=== PATIENT | male | born 1940 | race Caucasian/White ===

== ENCOUNTER 2021-11-05 12:58 | Observation (INO) | payer MEDICARE ==
[~2021-11-05] VITALS: Ht 182.9 cm; Wt 105.0 kg
[2021-11-05 13:15] LABS: Calcium, Ionized (POC) 1.22 mmol/L (1.10-1.46); Chloride (POC) 107 mmol/L (98-108); Creatinine (POC) 0.9 mg/dL (0.8-1.3); Glucose (ISTAT POC) 143 mg/dL (70-99); Hemoglobin (POC) 10.9 g/dL (13.5-17.5); Potassium (POC) 3.9 mmol/L (3.5-5.5); Sodium (POC) 143 mmol/L (135-148); Total CO2 (POC) 24 mmol/L (21-32)
[2021-11-05] MEDS ORDERED: Lipitor20 MG PO (13:16)
[2021-11-05] MEDS ORDERED: Vitamin D1000 UNI1 PO (13:16)
[2021-11-05] MEDS ORDERED: Acerola C500 MG PO (13:16)
[2021-11-05] MEDS ORDERED: Ventolin5 MG/1 ML INH (13:16)
[2021-11-05] MEDS ORDERED: DONEPEZIL HCL10 MG PO (13:17)
[2021-11-05] MEDS ORDERED: FLOVENT HFA12 GM INH (13:17)
[2021-11-05] MEDS ORDERED: DIGOX125 MC1 PO (13:17)
[2021-11-05] MEDS ORDERED: CARV3.125 PO (13:17)
[2021-11-05] MEDS ORDERED: Norco 10-325 T1 EACH PO (13:18)
[2021-11-05] MEDS ORDERED: GABA300 PO (13:18)
[2021-11-05] MEDS ORDERED: LISI5 PO (13:19)
[2021-11-05] MEDS ORDERED: MECL25 PO (13:19)
[2021-11-05] MEDS ORDERED: MEMA10 PO (13:19)
[2021-11-05] MEDS ORDERED: Isosorbide Mono30 MG PO (13:19)
[2021-11-05] MEDS ORDERED: OMEP20ER PO (13:20)
[2021-11-05] MEDS ORDERED: XARELTO20 MG PO (13:20)
[2021-11-05] MEDS ORDERED: NITR.4SL SL (13:20)
[2021-11-05 13:26] LABS: BASOPHILS ABSOLUTE AUTO 0.05 K/mm3 (0.00-0.23); BASOPHILS PERCENT AUTO 1 % (0-2); EOSINOPHILS ABSOLUTE AUTO 0.27 K/mm3 (0.00-0.68); EOSINOPHILS PERCENT AUTO 3 % (0-6); Hematocrit 31.5 % (37.0-53.0); Hemoglobin 9.5 g/dL (13.5-17.5); IMMATURE GRAN ABSOLUTE AUTO 0.02 K/mm3 (0.00-0.10); IMMATURE GRAN PERCENT AUTO 0 % (0-1); LYMPHOCYTES ABSOLUTE AUTO 1.52 K/mm3 (0.84-5.20); LYMPHOCYTES PERCENT AUTO 18 % (21-46); MONOCYTES ABSOLUTE AUTO 0.81 K/mm3 (0.16-1.47); MONOCYTES PERCENT AUTO 9 % (4-13); Mean Corpuscular HGB 24.2 pg (26.0-34.0); Mean Corpuscular HGB Conc 30.2 g/dL (31.5-36.5); Mean Corpuscular Volume 80 fL (80-100); Mean Platelet Volume 10.7 fL (9.1-12.4); NEUTROPHILS ABSOLUTE AUTO 5.96 K/mm3 (1.96-9.15); NEUTROPHILS PERCENT AUTO 69 % (41-73); Platelet Count 245 K/mm3 (150-400); RDW Coefficient Variation 15.9 % (11.7-14.2); RDW Standard Deviation 46.6 fL (35.1-46.3); Red Blood Cell Count 3.93 M/mm3 (4.30-5.90); White Blood Cell Count 8.63 K/mm3 (4.00-11.30)
[2021-11-05 13:45] LABS: Albumin/Globulin Ratio 0.8 (0.8-1.8); Bilirubin, Total 0.6 mg/dL (0.1-1.0); Bun/Creatinine Ratio 18.8 (12.0-20.0); Calcium, Blood 8.7 mg/dL (8.5-10.1); Creatinine, Blood 0.85 mg/dL (0.60-1.20); Globulin, Blood 3.7 g/dL (2.2-4.0); Potassium, Blood 3.9 mmol/L (3.5-5.5); Total Protein, Blood 6.7 g/dL (6.4-8.2)
--- NOTE | 2021-11-05 19:06 | NUR ---
SHIFT SUMMARY PT ARRIVED TO ROOM 341 BY W/C AND ABLE TO TRANSFER SELF TO BED AT 1715. DAUGHTER CAME TO SEE HIM FOR SHORT TIME AT SUPPER AND ASSISTED WITH COMPLETING ADMISSION. PT FORGETFUL AND ASKS THE SAME QUESTIONS REPEATEDLY. BED ALARM ON.
--- NOTE | 2021-11-06 04:45 | NUR ---
SHIFT SUMMARY: PATIENT ORIENTED TO SELF ONLY. FORGETFUL WITH POOR CARRYOVER. DENIES CHEST PAIN/PRESSURE. TELE = PACED. PRN NORCO GIVEN FOR COMPLAINT OF BACK PAIN. BED ALARM ENGAGED FOR IMPULSIVITY RELATED TO URINARY URGENCY. PATIENT DOES CALL APPROPIATLEY AT TIMES.
[2021-11-06 08:50] LABS: CHOL/HDL RATIO 2.5; Cholesterol 86 mg/dL (50-200); HDL Cholesterol 34 mg/dL (>39); LDL/HDL RATIO 0.8; Low Density Lipoprotein Chol 29 mg/dL (0-110); Triglycerides 116 mg/dL (30-160); Very Low Density Lipoprot Chol 23 mg/dL (6-32)
--- NOTE | 2021-11-06 10:11 | NUR ---
Spiritual Care Visit - Pt. Request Pt. is awake in bed and welcomes my visit. Pt. is pleasant and has no real spiritual distress. Pt, is only unsettled by the uncertain nature of his diagnosis. With a calming presence, listen theraputically. Pt. is a man of ever. Develop rapport and pray with Pt. Pt. verbalizes expectations of discharge and gratitude for the spiritual care visit.
--- NOTE | 2021-11-06 14:50 | NUR ---
DISCHARGE INSTRUCTIONS COMPLETED AND DISCUSSED WITH PTS DAUGHTER, JUSTINA. PT REPEATIN QUESTIONS FREQUENTLY AND NEEDING REORIENTATION. EASILY REDIRECTABLE. TOO CURB VIA W/C.
== END 2021-11-06 14:46 | disposition home or self-care (01) ==
LOC: ER 12:58 → MEDS 12:59
PROVIDERS: Emergency Medicine; Family Medicine; ADMIT Internal Medicine
DX: R07.89 Other chest pain (principal); F03.90 Unspecified dementia, unspecified severity, without behavioral disturbance, psychotic disturbance, mood disturbance, and anxiety; I48.20 Chronic atrial fibrillation, unspecified; E78.5 Hyperlipidemia, unspecified; I11.0 Hypertensive heart disease with heart failure; I50.9 Heart failure, unspecified; K21.9 Gastro-esophageal reflux disease without esophagitis; I25.10 Atherosclerotic heart disease of native coronary artery without angina pectoris; Z95.0 Presence of cardiac pacemaker; Z88.2 Allergy status to sulfonamides; Z79.01 Long term (current) use of anticoagulants
CPT/HCPCS: 36415; 71046; 80047; 80053; 80061; 83036; 83880; 84443; 84484; 85014; 85025; 85651; 86140; 93005; 93010; 93306; 94640; 94664; 94760; 99285-25; A9270; G0378; J7030

== ENCOUNTER 2022-02-21 02:05 | Day surgery (SDC) | payer MEDICARE ==
[~2022-02-21 02:05] MED LIST: Acerola C500 MG PO; CARV3.125 PO; DIGOX125 MC1 PO; DONEPEZIL HCL10 MG PO; FLOVENT HFA12 GM INH; GABA300 PO; Isosorbide Mono30 MG PO; LISI5 PO; Lipitor20 MG PO; MECL25 PO; MEMA10 PO; NITR.4SL SL; Norco 10-325 T1 EACH PO; OMEP20ER PO; Ventolin5 MG/1 ML INH; Vitamin D1000 UNI1 PO; XARELTO20 MG PO
== END 2022-02-22 00:23 | disposition home or self-care (01) ==
LOC: WOUND 02:05
DX: L89.893 Pressure ulcer of other site, stage 3 (principal); I10 Essential (primary) hypertension; E78.5 Hyperlipidemia, unspecified; I73.9 Peripheral vascular disease, unspecified; M79.671 Pain in right foot; F03.90 Unspecified dementia, unspecified severity, without behavioral disturbance, psychotic disturbance, mood disturbance, and anxiety; J44.9 Chronic obstructive pulmonary disease, unspecified; Z88.2 Allergy status to sulfonamides
CPT/HCPCS: A9270; G0463

== ENCOUNTER 2022-03-07 02:37 | Day surgery (SDC) | payer MEDICARE | END 2022-03-07 23:32 | disposition home or self-care (01) | LOC: WOUND 02:37 | DX: L89.893 Pressure ulcer of other site, stage 3 (principal); I10 Essential (primary) hypertension; F03.90 Unspecified dementia, unspecified severity, without behavioral disturbance, psychotic disturbance, mood disturbance, and anxiety; I73.9 Peripheral vascular disease, unspecified | CPT/HCPCS: A9270; G0463 ==

== ENCOUNTER 2022-03-14 00:57 | Day surgery (SDC) | payer MEDICARE | END 2022-03-14 23:23 | disposition home or self-care (01) | LOC: WOUND 00:57 | DX: L89.893 Pressure ulcer of other site, stage 3 (principal); I10 Essential (primary) hypertension; E78.5 Hyperlipidemia, unspecified; I73.9 Peripheral vascular disease, unspecified | CPT/HCPCS: A9270 ==

== ENCOUNTER 2022-03-27 03:54 | Day surgery (SDC) | payer MEDICARE | END 2022-03-27 22:53 | disposition home or self-care (01) | LOC: WOUND 03:54 | DX: L89.893 Pressure ulcer of other site, stage 3 (principal); I10 Essential (primary) hypertension; E78.5 Hyperlipidemia, unspecified; I70.219 Atherosclerosis of native arteries of extremities with intermittent claudication, unspecified extremity | CPT/HCPCS: G0463 ==

== ENCOUNTER 2022-04-11 00:34 | Day surgery (SDC) | payer MEDICARE | END 2022-04-11 22:48 | disposition home or self-care (01) | LOC: WOUND 00:34 | DX: L89.893 Pressure ulcer of other site, stage 3 (principal); I70.219 Atherosclerosis of native arteries of extremities with intermittent claudication, unspecified extremity; I10 Essential (primary) hypertension; E78.5 Hyperlipidemia, unspecified; F03.90 Unspecified dementia, unspecified severity, without behavioral disturbance, psychotic disturbance, mood disturbance, and anxiety | CPT/HCPCS: A9270 ==

== ENCOUNTER 2022-04-25 02:08 | Day surgery (SDC) | payer MEDICARE | END 2022-04-25 22:52 | disposition home or self-care (01) | LOC: WOUND 02:08 | DX: L89.893 Pressure ulcer of other site, stage 3 (principal); I10 Essential (primary) hypertension; F03.90 Unspecified dementia, unspecified severity, without behavioral disturbance, psychotic disturbance, mood disturbance, and anxiety; E78.5 Hyperlipidemia, unspecified; I70.219 Atherosclerosis of native arteries of extremities with intermittent claudication, unspecified extremity | CPT/HCPCS: A9270; G0463 ==

== ENCOUNTER 2022-05-02 00:36 | Day surgery (SDC) | payer MEDICARE | END 2022-05-02 23:06 | disposition home or self-care (01) | LOC: WOUND 00:36 | DX: L89.893 Pressure ulcer of other site, stage 3 (principal); I10 Essential (primary) hypertension; E78.5 Hyperlipidemia, unspecified; I70.219 Atherosclerosis of native arteries of extremities with intermittent claudication, unspecified extremity; F03.90 Unspecified dementia, unspecified severity, without behavioral disturbance, psychotic disturbance, mood disturbance, and anxiety | CPT/HCPCS: A9270 ==

== ENCOUNTER 2022-05-16 01:40 | Day surgery (SDC) | payer MEDICARE | END 2022-05-17 23:31 | disposition home or self-care (01) | LOC: WOUND 01:40 | DX: L89.893 Pressure ulcer of other site, stage 3 (principal); F03.90 Unspecified dementia, unspecified severity, without behavioral disturbance, psychotic disturbance, mood disturbance, and anxiety; I10 Essential (primary) hypertension; E78.5 Hyperlipidemia, unspecified; I70.219 Atherosclerosis of native arteries of extremities with intermittent claudication, unspecified extremity | CPT/HCPCS: A9270; G0463 ==

== ENCOUNTER 2022-06-20 01:55 | Day surgery (SDC) | payer MEDICARE | END 2022-06-20 22:44 | disposition home or self-care (01) | LOC: WOUND 01:55 | DX: L89.893 Pressure ulcer of other site, stage 3 (principal); I70.219 Atherosclerosis of native arteries of extremities with intermittent claudication, unspecified extremity; I10 Essential (primary) hypertension; E78.5 Hyperlipidemia, unspecified | CPT/HCPCS: G0463 ==

== ENCOUNTER 2022-07-04 01:11 | Day surgery (SDC) | payer MEDICARE | END 2022-07-05 22:42 | disposition home or self-care (01) | LOC: WOUND 01:11 | DX: Z09 Encounter for follow-up examination after completed treatment for conditions other than malignant neoplasm (principal); Z87.2 Personal history of diseases of the skin and subcutaneous tissue; I70.219 Atherosclerosis of native arteries of extremities with intermittent claudication, unspecified extremity; I10 Essential (primary) hypertension; E78.5 Hyperlipidemia, unspecified | CPT/HCPCS: G0463 ==

== ENCOUNTER 2022-09-02 10:14 | Inpatient (IN) | payer MEDICARE ==
[~2022-09-02] VITALS: Ht 182.9 cm; Wt 98.5 kg
[2022-09-02 10:49] LABS: BASOPHILS ABSOLUTE AUTO 0.05 K/mm3 (0.00-0.23); BASOPHILS PERCENT AUTO 1 % (0-2); EOSINOPHILS ABSOLUTE AUTO 0.25 K/mm3 (0.00-0.68); EOSINOPHILS PERCENT AUTO 4 % (0-6); Hematocrit 40.6 % (37.0-53.0); Hemoglobin 13.2 g/dL (13.5-17.5); IMMATURE GRAN ABSOLUTE AUTO 0.02 K/mm3 (0.00-0.10); IMMATURE GRAN PERCENT AUTO 0 % (0-1); LYMPHOCYTES ABSOLUTE AUTO 1.52 K/mm3 (0.84-5.20); LYMPHOCYTES PERCENT AUTO 25 % (21-46); MONOCYTES ABSOLUTE AUTO 0.48 K/mm3 (0.16-1.47); MONOCYTES PERCENT AUTO 8 % (4-13); Mean Corpuscular HGB 28.9 pg (26.0-34.0); Mean Corpuscular HGB Conc 32.5 g/dL (31.5-36.5); Mean Corpuscular Volume 89 fL (80-100); Mean Platelet Volume 10.3 fL (9.1-12.4); NEUTROPHILS ABSOLUTE AUTO 3.71 K/mm3 (1.96-9.15); NEUTROPHILS PERCENT AUTO 62 % (41-73); Platelet Count 155 K/mm3 (150-400); RDW Coefficient Variation 17.9 % (11.7-14.2); RDW Standard Deviation 58.1 fL (35.1-46.3); Red Blood Cell Count 4.57 M/mm3 (4.30-5.90); White Blood Cell Count 6.03 K/mm3 (4.00-11.30)
[2022-09-02] MEDS ORDERED: HYDROCODONE-AC1 EA19 PO (10:56)
[2022-09-02] MEDS ORDERED: ESCI10 PO (10:57)
[2022-09-02 11:18] LABS: Alanine Aminotransfer (ALT/SGP 22 U/L (12-78); Albumin, Blood 3.1 g/dL (3.4-5.0); Albumin/Globulin Ratio 0.8 (0.8-1.8); Alk Phos 74 U/L (50-136); Anion Gap 2 mmol/L (6-16); Aspartate Aminotrans (AST/SGOT 28 U/L (12-37); Bilirubin, Total 0.7 mg/dL (0.1-1.0); Blood Urea Nitrogen 19 mg/dL (8-24); CO2, Blood 26 mmol/L (21-32); Calcium, Blood 8.7 mg/dL (8.5-10.1); Chloride, Blood 109 mmol/L (98-108); Creatinine, Blood 0.95 mg/dL (0.60-1.20); Digoxin (Lanoxin) 0.66 ug/mL (0.80-2.00); Globulin, Blood 3.7 g/dL (2.2-4.0); Glomerular Filtration Rate 79 (60-); Glucose, Blood 141 mg/dL (70-99); Potassium, Blood 4.4 mmol/L (3.5-5.5); Sodium, Blood 137 mmol/L (136-145); Total Protein, Blood 6.8 g/dL (6.4-8.2)
[2022-09-02 13:59] VITALS: BP 147/86
--- NOTE | 2022-09-02 14:00 | NUR ---
ARRIVAL PATIENT ARRIVED TO UNIT VIA W/C, SBA TO BED. PATIENT DENIES CP/PRESSURE/SOB. FULL ASSESSMENT DONE AND DOCUMENTED AT THIS TIME. TELE PLACED, PACED @ 72 PER NAZANIN IN TELE. VSS ON RA. ORIENTED TO ROOM & CALL LIGHT, IN REACH.
--- NOTE | 2022-09-02 18:50 | NUR ---
SHIFT SUMMARY NO ACUTE CHANGES SINCE ARRIVAL TO UNIT. PATIENT UP TO BATHROOM W/ 1 ASSIST W/ FWW. EATING, DRINKING, & VOIDING W/O DIFFICULTY. PATIENT WEARS BRIEFS AT BASELINE FOR OCCASSIONAL INCONTINENCE. PATIENT USES CALL LIGHT APPROPRIATELY AT TIMES, INAPPROPRIATELY AT OTHER TIMES. SOME CONFUSION NOTED, ASKS SAME QUESTIONS OFTEN, EASLIY REORIENTED. BED ALARM IN PLACE. WILL REPORT TO ONCOMING RN.
[2022-09-02 19:17] VITALS: BP 134/83
--- NOTE | 2022-09-02 23:50 | NUR ---
PT TRANSFERED FROM ROOM 340. PT IS AXO X1-2 AND REQUIRES FREQUENT REORIENTATION. THE PT IS A 1 ASSIST WITH A FWW. THE PT DENIES ANY SOB, PAIN, CHEST PAIN/PRESSURE AT THIS TIME. TELE IS IN PLACE, V-PACED IN THE 70'S. BANDAGES ARE INTACT ON THE PTS L FOREARM AND LLQ FROM SKIN GRAFT R/T TO MELANOMA.
[2022-09-03] VITALS (9 sets, daily range): BP systolic 81–154; BP diastolic 56–87
[2022-09-03 01:44] LABS: BASOPHILS ABSOLUTE AUTO 0.04 K/mm3 (0.00-0.23); BASOPHILS PERCENT AUTO 1 % (0-2); EOSINOPHILS ABSOLUTE AUTO 0.32 K/mm3 (0.00-0.68); EOSINOPHILS PERCENT AUTO 4 % (0-6); Hematocrit 42.1 % (37.0-53.0); Hemoglobin 13.8 g/dL (13.5-17.5); IMMATURE GRAN ABSOLUTE AUTO 0.02 K/mm3 (0.00-0.10); IMMATURE GRAN PERCENT AUTO 0 % (0-1); LYMPHOCYTES PERCENT AUTO 25 % (21-46); MONOCYTES ABSOLUTE AUTO 0.69 K/mm3 (0.16-1.47); MONOCYTES PERCENT AUTO 9 % (4-13); Mean Corpuscular HGB 28.9 pg (26.0-34.0); Mean Corpuscular HGB Conc 32.8 g/dL (31.5-36.5); Mean Corpuscular Volume 88 fL (80-100); Mean Platelet Volume 10.3 fL (9.1-12.4); NEUTROPHILS ABSOLUTE AUTO 4.97 K/mm3 (1.96-9.15); NEUTROPHILS PERCENT AUTO 62 % (41-73); Platelet Count 170 K/mm3 (150-400); RDW Coefficient Variation 17.6 % (11.7-14.2); RDW Standard Deviation 57.2 fL (35.1-46.3); Red Blood Cell Count 4.78 M/mm3 (4.30-5.90); White Blood Cell Count 8.04 K/mm3 (4.00-11.30)
[2022-09-03 02:47] LABS: Bun/Creatinine Ratio 22.8 (12.0-20.0); Calcium, Blood 9.2 mg/dL (8.5-10.1); Creatinine, Blood 0.92 mg/dL (0.60-1.20); Potassium, Blood 4.1 mmol/L (3.5-5.5)
--- NOTE | 2022-09-03 05:12 | NUR ---
SHIFT SUMMARY; NO ACUTE CHANGES SINCE TRANSFER. PT IS AXO X2 BUT REQUIRES FREQUENT REORIENTATION. THE PT IS VERY CONFUSED AND YELLS OUT LOUD EVERY 15 MINUTES ASKING WHERE HE IS AT OR WHOSE THERE. THE PT IS A 1 ASSIST TO THE BATHROOM W A FWW. TELE IS IN PLACE, V-PACED @70. THE PT DENIES ANY PAIN, SOB, CHEST PAIN/PRESSURE OR N/V THIS SHIFT. THE PT HAS PULLED HIS TELE OFF AND ATTEMPTED TO GET OUT OF BED MULTIPLE TIMES THIS SHIFT. CURRENTLY THE PT IS SLEEPING IN BED WITH THE BED IN THE LOWEST POSITION AND THE CALL LIGHT AT BEDSIDE.
--- NOTE | 2022-09-03 07:47 | NUR ---
MORNING PT ALERT. FREQUNETLY CLIMBING OOB. BED ALARM ON. REMOVES TELE FREQUENTLY. HE IS UNABLE TO REORIENT TO EVENT, LOCATION OR PLACE. PLEASENT, COOPERATIVE, DIRECTABLE. ON CAMERA. HE'S FASTER THAN CAMERA CAN CALL. CONTINUE POC.
--- NOTE | 2022-09-03 09:42 | NUR ---
SYNCOPY PT WAS RETURNING FROMTHE BATHROOM. SAT IN THE CHAIR. STATED, "I'M DIZZY AND SOB." HE TURNED WHITE. CALLED FOR HELP. MOVED HIM FROM THE CHAIR TO THE BED WITH ASSIST. UPON LAYING FLAT. PT PERKED UP. BP 100/60. DR EARL CALLED. ORDER RECEIVED. CONTINUE POC.
--- NOTE | 2022-09-03 11:57 | NUR ---
DIZZY PT HAS RECEIVED 1000ML OF IVF PER DR EARL ORDER. SBP 90'S. MAP 75. PT LAYING FLAT. HE STILL STATES HES DIZZY. CALLED DR EARL PER HER REQUEST AFTER LITER WAS COMPLETE. SHE DIRECTED MIDODRINE ORAL AND A 2ND LITER OF NS. NS INFUSING AT 500ML/HR. PT ABLE TO VOID IN URINAL. HIS COLOR IS BETTER. WATCHING TV. CONTINUE POC.
[2022-09-03 14:58] LABS: Digoxin (Lanoxin) 0.54 ug/mL (0.80-2.00)
[2022-09-04 03:03] VITALS: BP 168/90
[2022-09-04 03:27] VITALS: BP 154/89
--- NOTE | 2022-09-04 04:11 | NUR ---
SUMMARY: PATIENT FREQUENTLY PULLING HEART MONITOR OFF AND CONSTANTLY TRYING TO GET UP AT START OF SHIFT. PATIENT STARTED TO BECOME AGITATED YELLING AT STAFF THAT HE WAS NOT IN HIS BEDROOM AND NEEDED TO LEAVE. NOTIFIED MD. RECIEVED ONE TIME DOSE ATIVAN. PATIENT WAS PLEASANT AND COMPLIANT WITH CARE THE REST OF THE NIGHT. HE DOES OCCASIONALLY PULL HIS LINES OFF AND TRY TO GET UP BUT ITS NORMALLY WHEN HE NEEDS TO VOID. AOX1. VSS. INCONTINENT OVERNIGHT.
[2022-09-04 07:28] VITALS: BP 158/90
[2022-09-04 14:19] VITALS: BP 143/93
[2022-09-04] MEDS ORDERED: NITR.4SL SL (15:46)
--- NOTE | 2022-09-04 16:44 | NUR ---
DISCHARGE SUMMARY PATIENT IS ALERT AND ORIENTED BUT OCCASIONALLY CONFUSED. PATIENT HAD NO ACUTE EVENTS THIS SHIFT. ORTHOSTATIC VITALS WERE DONE AND DISCHARGED PATIENT HOME WITH DAUGHTER TRANSPORTING.
== END 2022-09-04 16:17 | disposition home or self-care (01) | DRG 312 ==
LOC: ER 10:14 → MEDS 10:15
PROVIDERS: Emergency Medicine; ADMIT Internal Medicine
DX: I95.1 Orthostatic hypotension (principal); R07.89 Other chest pain; I48.91 Unspecified atrial fibrillation; K21.9 Gastro-esophageal reflux disease without esophagitis; E78.5 Hyperlipidemia, unspecified; I25.10 Atherosclerotic heart disease of native coronary artery without angina pectoris; D50.9 Iron deficiency anemia, unspecified; D63.8 Anemia in other chronic diseases classified elsewhere; F03.90 Unspecified dementia, unspecified severity, without behavioral disturbance, psychotic disturbance, mood disturbance, and anxiety; I50.9 Heart failure, unspecified; I11.0 Hypertensive heart disease with heart failure; Z88.2 Allergy status to sulfonamides; Z79.899 Other long term (current) drug therapy; Z79.51 Long term (current) use of inhaled steroids; Z79.02 Long term (current) use of antithrombotics/antiplatelets; Z79.52 Long term (current) use of systemic steroids; Z79.891 Long term (current) use of opiate analgesic; Z79.811 Long term (current) use of aromatase inhibitors; Z79.01 Long term (current) use of anticoagulants; Z95.0 Presence of cardiac pacemaker; Z98.890 Other specified postprocedural states; Z85.820 Personal history of malignant melanoma of skin; Z86.79 Personal history of other diseases of the circulatory system
CPT/HCPCS: 36415; 71045; 80048; 80053; 80162; 84484; 85025; 93005; 93010; 94640; 94664; 94760; 97116; 97162; 99285-25; A9270; G0378; J2060; J7030

== ENCOUNTER → 2022-09-10 | Outpatient (CLI) | payer MEDICARE ==
[~2022-09-10] MED LIST changes: +ESCI10 PO; +HYDROCODONE-AC1 EA19 PO
== END ==
LOC: LAB SHORT 15:49 → LAB 15:49
DX: L08.9 Local infection of the skin and subcutaneous tissue, unspecified (principal)
CPT/HCPCS: 87070; 87077; 87186; 87205

== ENCOUNTER 2024-01-16 21:14 | Emergency (ER) | payer MEDICARE ==
[~2024-01-16] VITALS: Ht 182.9 cm; Wt 104.3 kg
[~2024-01-16 21:14] MED LIST changes: +ACET325 PO; +CEFD300 PO; +MOME220I INH; +Prednisone10 MG PO; +VISBIOME 112.51 EACH PO
[2024-01-16 21:23] VITALS: BP 113/77
[2024-01-16 22:16] LABS: BASOPHILS ABSOLUTE AUTO 0.05 K/mm3 (0.00-0.23); BASOPHILS PERCENT AUTO 1 % (0-2); EOSINOPHILS ABSOLUTE AUTO 0.29 K/mm3 (0.00-0.68); EOSINOPHILS PERCENT AUTO 4 % (0-6); Hematocrit 38.6 % (37.0-53.0); Hemoglobin 12.6 g/dL (13.5-17.5); IMMATURE GRAN ABSOLUTE AUTO 0.02 K/mm3 (0.00-0.10); IMMATURE GRAN PERCENT AUTO 0 % (0-1); LYMPHOCYTES ABSOLUTE AUTO 1.61 K/mm3 (0.84-5.20); LYMPHOCYTES PERCENT AUTO 22 % (21-46); MONOCYTES ABSOLUTE AUTO 0.54 K/mm3 (0.16-1.47); MONOCYTES PERCENT AUTO 7 % (4-13); Mean Corpuscular HGB 30.8 pg (26.0-34.0); Mean Corpuscular HGB Conc 32.6 g/dL (31.5-36.5); Mean Corpuscular Volume 94 fL (80-100); Mean Platelet Volume 11.3 fL (9.1-12.4); NEUTROPHILS ABSOLUTE AUTO 4.79 K/mm3 (1.96-9.15); NEUTROPHILS PERCENT AUTO 66 % (41-73); Platelet Count 130 K/mm3 (150-400); RDW Standard Deviation 48.5 fL (35.1-46.3); Red Blood Cell Count 4.09 M/mm3 (4.30-5.90)
[2024-01-16 22:44] LABS: Albumin, Blood 3.3 g/dL (3.4-5.0); Albumin/Globulin Ratio 0.9 (0.8-1.8); Bilirubin, Total 0.6 mg/dL (0.1-1.0); Bun/Creatinine Ratio 23.5 (12.0-20.0); Calcium, Blood 8.9 mg/dL (8.5-10.1); Creatinine, Blood 0.9 mg/dL (0.60-1.20); Free Thyroxine 0.64 ng/dL (0.70-1.60); Globulin, Blood 3.6 g/dL (2.2-4.0); Potassium, Blood 3.9 mmol/L (3.5-5.5); Thyroid Stimulating Hormone 1.61 uIU/mL (0.360-4.800); Total Protein, Blood 6.9 g/dL (6.4-8.2)
== END 2024-01-17 10:15 | disposition home or self-care (01) ==
LOC: ER 21:14
PROVIDERS: Emergency Medicine
DX: R45.6 Violent behavior (principal); I11.0 Hypertensive heart disease with heart failure; I50.9 Heart failure, unspecified; I48.91 Unspecified atrial fibrillation; E78.5 Hyperlipidemia, unspecified; K21.9 Gastro-esophageal reflux disease without esophagitis; Z87.891 Personal history of nicotine dependence; Z79.52 Long term (current) use of systemic steroids; Z79.51 Long term (current) use of inhaled steroids; Z79.899 Other long term (current) drug therapy; Z88.2 Allergy status to sulfonamides
CPT/HCPCS: 70450; 80053; 84439; 84443; 85025; 93005; 93010; 99285-25

== ENCOUNTER 2024-12-12 18:52 | Inpatient (IN) | payer MEDICARE ==
[~2024-12-12] VITALS: Ht 188 cm; Wt 73.0 kg
[2024-12-12 20:21] LABS: BASOPHILS ABSOLUTE AUTO 0.08 K/mm3 (0.00-0.23); BASOPHILS PERCENT AUTO 1 % (0-2); EOSINOPHILS ABSOLUTE AUTO 0.06 K/mm3 (0.00-0.68); EOSINOPHILS PERCENT AUTO 1 % (0-6); Hematocrit 47.3 % (37.0-53.0); Hemoglobin 14.4 g/dL (13.5-17.5); IMMATURE GRAN ABSOLUTE AUTO 0.04 K/mm3 (0.00-0.10); IMMATURE GRAN PERCENT AUTO 0 % (0-1); LYMPHOCYTES ABSOLUTE AUTO 0.82 K/mm3 (0.84-5.20); LYMPHOCYTES PERCENT AUTO 6 % (21-46); MONOCYTES ABSOLUTE AUTO 0.43 K/mm3 (0.16-1.47); MONOCYTES PERCENT AUTO 3 % (4-13); Mean Corpuscular HGB Conc 30.4 g/dL (31.5-36.5); Mean Corpuscular Volume 93 fL (80-100); NEUTROPHILS ABSOLUTE AUTO 11.41 K/mm3 (1.96-9.15); NEUTROPHILS PERCENT AUTO 89 % (41-73); NRBC ABSOLUTE 0.02 K/mm3 (0.00-0.02); NRBC Auto 0.2 /100 WBC (0.0-0.2); RDW Coefficient Variation 18.4 % (11.7-14.2); RDW Standard Deviation 60.4 fL (35.1-46.3)
[2024-12-12 20:22] LABS: Platelet Count 168 K/mm3 (150-400)
[2024-12-12 20:25] LABS: Alanine Aminotransfer (ALT/SGP 48.0 U/L (12-78); Albumin, Blood 2.8 g/dL (3.4-5.0); Albumin/Globulin Ratio 0.5 (0.8-1.8); Anion Gap 8.0 mmol/L (3-11); Aspartate Aminotrans (AST/SGOT 56.0 U/L (12-37); Bilirubin, Total 1.0 mg/dL (0.1-1.0); Blood Urea Nitrogen 68.0 mg/dL (8-24); CO2, Blood 23.0 mmol/L (21-32); Calcium, Blood 9.0 mg/dL (8.5-10.1); Chloride, Blood 133.0 mmol/L (98-108); Creatinine, Blood 2.52 mg/dL (0.60-1.20); Globulin, Blood 5.1 g/dL (2.2-4.0); Glucose, Blood 139.0 mg/dL (70-99); Potassium, Blood 4.4 mmol/L (3.5-5.5); Sodium, Blood 160.0 mmol/L (136-145); Total Protein, Blood 7.9 g/dL (6.4-8.2)
[2024-12-12] MEDS ORDERED: Ondansetron HCl 2 MG / ML 2ML Vial IV PRN (22:55)
[2024-12-13 01:10] VITALS: BP 114/99
[2024-12-13 02:18] LABS: Anti-Xa UFH, PHA Monitoring <0.10 IU/mL; Prothrombin Time Results 13.5 Sec (9.7-11.5)
[2024-12-13 02:30] LABS: Anion Gap 6 mmol/L (3-11); Blood Urea Nitrogen 67 mg/dL (8-24); CO2, Blood 27 mmol/L (21-32); Calcium, Blood 8.7 mg/dL (8.5-10.1); Chloride, Blood 131 mmol/L (98-108); Creatinine, Blood 2.39 mg/dL (0.60-1.20); Glucose, Blood 119 mg/dL (70-99); Magnesium, Blood 2.8 mg/dL (1.6-2.4); Phosphorus, Blood 4.1 mg/dL (2.5-4.9); Potassium, Blood 4.1 mmol/L (3.5-5.5); Sodium, Blood 160 mmol/L (136-145); Thyroid Stimulating Hormone 1.920 uIU/mL (0.360-4.800)
[2024-12-13] MEDS ORDERED: Heparin Sodium 5000 Units/ML 1ML MDV IV ONE (02:30)
[2024-12-13] MEDS ORDERED: Heparin Sodium,Porcine/0.5 NS 500 ML IV SCH (02:35)
[2024-12-13 03:28] VITALS: BP 170/73
[2024-12-13 05:04] VITALS: BP 121/79
--- NOTE | 2024-12-13 06:07 | NUR ---
ADMIT NOTE @ APPROX 0100 REPORT RECIVED BY THIS RN FROM [employer] [facility] @ APPROX 0043 PT ARRIVED TO [facility] @ APPROC 0100, PT SLIDE OVER BY MEDICAL STAFF, VSS, PT RESPONING TO PAINFUL STIMULI, PT MAKING SOUNDS BUT NO FORMING OF WORKDS, PUPILS ARE EQUAL AND REACTIVE TO LIGHT, PT NOT PARTICIPATING WITH CARE.
--- NOTE | 2024-12-13 06:07 | NUR ---
SHIFT SUMMARY PT RESPOND TO PAINFUL STIMULI, MOANS DURING PREPOSITIONING OR CARE, PT NOT PARTICIPATING WITH CARE/ NEEDING FULL CARE, PT FAVORING LEFT SIDE MOVING HIMSELF TO THAT SIDE, ARMS AND LEGS CURLED. CONTINUOUS SPO2 GREATER THAN 90% RA, LUNGS SOUND DIMINISHED T/O, NO SIGNS OF RESPIRATORY DISTRESS NOTED, PT FINGERS AND TOES APPEAR CYANOTIC, LOTS OF ORAL SECRETIONS . CONTINUOUS TELE MONITORING, AFIB 100-130 S, BP STABLE WITH MAP GREATER THAN 65, PULSES PRESENT T/O, CAP REFILL IN FINGER AND TOES GREATER THAN 3 S. BOWEL TONES PRESENT IN ALL 4Q, PT INCONTINENT OF BM. PUREWICK IN PLACE CONNECTED TO LOW CONTINUOUS SUCTION, URINE ZAYDA IN COLOR. MULTIPLE WOUNDS/SEE PHOTOS ON CHART/ MD NOTIFIED OF PRESSURE WOULD TO COCCYX AND LEFT HIP. MEPILEXES PLACED BED LOWEST POSITION, CALL LIGHT IN REACH, AWAITING TO GIVE REPORT TO ONCOMING RN.
[2024-12-13 06:36] LABS: Anion Gap 4.0 mmol/L (3-11); Blood Urea Nitrogen 64.0 mg/dL (8-24); CO2, Blood 31.0 mmol/L (21-32); Calcium, Blood 8.5 mg/dL (8.5-10.1); Chloride, Blood 130.0 mmol/L (98-108); Creatinine, Blood 2.31 mg/dL (0.60-1.20); Glucose, Blood 125.0 mg/dL (70-99); Potassium, Blood 3.9 mmol/L (3.5-5.5); Sodium, Blood 161.0 mmol/L (136-145)
[2024-12-13 07:04] VITALS: BP 116/90
[2024-12-13 10:24] LABS: Hematocrit 44.6 % (37.0-53.0); Hemoglobin 13.1 g/dL (13.5-17.5); Platelet Count 130 K/mm3 (150-400)
[2024-12-13 10:58] LABS: Anion Gap Unable to Calculate mmol/L (3-11); Blood Urea Nitrogen 60 mg/dL (8-24); CO2, Blood 31 mmol/L (21-32); Calcium, Blood 8.6 mg/dL (8.5-10.1); Chloride, Blood 131 mmol/L (98-108); Creatinine, Blood 2.19 mg/dL (0.60-1.20); Glucose, Blood 139 mg/dL (70-99); Potassium, Blood 3.7 mmol/L (3.5-5.5); Sodium, Blood 157 mmol/L (136-145)
[2024-12-13 11:04] LABS: Anti-Xa UFH, PHA Monitoring 0.45 IU/mL
[2024-12-13] MEDS ORDERED: Dose Adjust by Pharmacy XX STA (11:06)
[2024-12-13 11:23] VITALS: BP 137/47
--- NOTE | 2024-12-13 12:50 | NUR ---
CASE CONFRENCE- PATIENT WAS UNRESPONSIVE, LAYING IN BED. DISCUSSED CASE WITH BSRN, PCU GAS INSPECTOR AND MARTHA FROM [employer], WHO ARRIVED PER PATIENTS DAUGHTERS REQUEST. SHE WILL CALL DAUGHTER TO DISCUSS OPTIONS AND UPDATE ME.
[2024-12-13 14:30] LABS: Anion Gap 4.0 mmol/L (3-11); Blood Urea Nitrogen 60.0 mg/dL (8-24); CO2, Blood 31.0 mmol/L (21-32); Calcium, Blood 8.2 mg/dL (8.5-10.1); Chloride, Blood 128.0 mmol/L (98-108); Creatinine, Blood 1.93 mg/dL (0.60-1.20); Glucose, Blood 148.0 mg/dL (70-99); Potassium, Blood 3.4 mmol/L (3.5-5.5); Sodium, Blood 160.0 mmol/L (136-145)
[2024-12-13] MEDS ORDERED: ZINC OXIDE/PETROLATUM, YELLOW 1 APPLIC/71 GM PASTE TOP PRN (15:20)
[2024-12-13 15:25] VITALS: BP 132/87
[2024-12-13] MEDS ORDERED: Morphine Sulfate 20 MG/1ML 1 ML Oral Syringe SL PRN (15:30)
[2024-12-13] MEDS ORDERED: Atropine Sulfate 1% Opth Soln 2ML BTL SL PRN (15:30)
--- NOTE | 2024-12-13 16:16 | NUR ---
DISCUSSED GOC WITH PATIENTS DAUGHTER JUSTINA. OFFERED COMFORT MEASURES FOR JAROD, SHE WAS AGREEABLE. GEOTECHNICAL FIELD TECHNICIAN WAS PRESANT DURING THE CONVERSATION AND SHE ASLO HAD A DISCUSSION WITH PATIENTS DAUGHTER ABOUT PLACMENT AND INSURANCE.
--- NOTE | 2024-12-13 17:49 | NUR ---
SHIFT SUMMARY; ASSUMED CARE AT 0700. NON VERBAL AND APPEARS SOMMULENT. RESPONDS TO STIMULI WITH MOANS. DAUGHTER MET WITH PALLATIVE CARE AND DICUSSED HOSPICE AND COMFORT CARE. ORDERS PLACED, WILL PLAN FOR DISCHARGE TOMORROW.
--- NOTE | 2024-12-14 05:45 | NUR ---
SHIFT SUMMARY PT RESPOND TO PHYSICAL STIMULI, MOANS DURING PREPOSITIONING OR CARE, PT NOT PARTICIPATING WITH CARE/ NEEDING FULL CARE, ARMS AND LEGS CURLED, REPOSITIONED BY STAFF Q2. LUNGS SOUND DIMINISHED WITH COASE CRACKLES T/O, NO SIGNS OF RESPIRATORY DISTRESS NOTED, PT FINGERS AND TOES APPEAR CYANOTIC, ORAL SECRETIONS PRESENT/ MEDICATED WITH PRN ATROPINE ORAL DROPS, OCCASIONALLY HAVING SHORT APNIC EPISODES . CAP REFILL IN FINGER AND TOES GREATER THAN 3 S, HEART SOUND IRREGULAR. BOWEL TONES PRESENT IN ALL 4Q. PUREWICK IN PLACE CONNECTED TO LOW CONTINUOUS SUCTION, URINE ZAYDA IN COLOR. MULTIPLE WOUNDS/SEE PHOTOS ON CHART, MEPILEXES ARE C/D/I PT POTENTIALLY TO BE DISCHARGED ON HOSPICE 12/14 BED LOWEST POSITION, CALL LIGHT IN REACH, AWAITING TO GIVE REPORT TO ONCOMING RN.
--- NOTE | 2024-12-14 12:12 | NUR ---
DISCUSSED CASE WITH RAG SORTER AND CUTTER. SHE WILL CALL WHEN PATIENTS DAUGHTER ARRIVES. ASSESSED PT. HE WAS AGITATED THIS MORNING BUT WAS MEDICATED SHORTLY AFTER I ASSESSED HIM. HE IS WARM TO THE TOUCH.
--- NOTE | 2024-12-14 18:05 | NUR ---
SHIFT SUMMARY. SHIFT HAS BEEN UNREMARKABLE. ONLY MEDICATED W/ ROXANOL ONE TIME. PT HAS APPEARED COMFORTABLE AND ABLE TO REST THROUGHOUT MOST OF SHIFT. THIS MORNING, ADMINISTERED ATROPINE DROPS TO NO EFFECT ON SECRETIONS. SCOPOLAMINE PATCH WAS PUT IN PLACE WHICH HAS BEEN MORE SUCCESSFUL IN DECREASING SECRETIONS. Q2 HOUR REPOSITIONS. PT HAS BEEN LETHARGIC THROUGHOUT SHIFT AND HAS NOT WOKEN THUS FAR. FAMILY AT BEDSIDE BRIEFLY THIS AFTERNOON. BED LOCKED IN LOWEST POSITION. CALL LIGHT IN REACH.
--- NOTE | 2024-12-15 01:26 | NUR ---
0113-THIS RN IN TO CHECK ON PATIEN, PATIENT NOT BREATHING AND APPEARS TO HAVE PASSED. THIS RN VERIFIED NO HEART SOUNDS, BREATH SOUNDS X1 MINUTE AND CONFIRMED WITH SAM CHAVEZ. ATTEMPTED TO CONTACT DAUGHTER WITH NO ANSWER-VOICEMAIL LEFT TO CALL THIS RN BACK AT PCU. ATTEMPTED TO CALL GRANDDAUGHTER WHO IS LISTED PERSON TO NOTIFIED WITH NO ANSWER. CHARGE NURSE NOTIFIED.
--- NOTE | 2024-12-15 02:05 | NUR ---
THIS RN ATTEMPTED TO CALL DAUGHTER JUSTINA AND GRANDDAUGHTER RICARDO PER PATIENTS NEXT OF KIN AND PERSON TO NOTIFY WITH NO SUCCESS, MESSAGES LEFT FOR BOTH FAMILY MEMBERS ASKING TO CALL PCU BACK IN REGARDS TO A FAMILY MEMBER.
--- NOTE | 2024-12-15 02:30 | NUR ---
CONTACTED GRANDDAUGHTER RICARDO ABERNATHY-FAMILY DOES NOT HAVE A HOME PREFERENCE-TALKED WITH GRANDDAUGHTER AND LET HER KNOW THAT WE WOULD CALL AND ARRANGE FOR A HOME TO PIPE AND BO[employer] SUPERVISOR GRANDFATHER AND THE HOME WILL CONTACT THE FAMILY AND CAN ASSIST WITH STEPS MOVING FORWARD. CHARGE NURSE KYLEIGH INFORMED THIS RN THAT [facility] THE HOME USED FOR MY.HOPPER.
== END 2024-12-15 05:02 | DRG 682 ==
LOC: ER 18:52 → PCU 22:54
PROVIDERS: Family Medicine; Student in an Organized Health Care Education/Training Program; ADMIT Internal Medicine
DX: N17.9 Acute kidney failure, unspecified (principal); G93.41 Metabolic encephalopathy; E87.0 Hyperosmolality and hypernatremia; I48.20 Chronic atrial fibrillation, unspecified; R65.10 Systemic inflammatory response syndrome (SIRS) of non-infectious origin without acute organ dysfunction; E86.0 Dehydration; G30.9 Alzheimer's disease, unspecified; Z51.5 Encounter for palliative care; Z66 Do not resuscitate; F02.80 Dementia in other diseases classified elsewhere, unspecified severity, without behavioral disturbance, psychotic disturbance, mood disturbance, and anxiety; E78.5 Hyperlipidemia, unspecified; I25.10 Atherosclerotic heart disease of native coronary artery without angina pectoris; I11.0 Hypertensive heart disease with heart failure; I50.9 Heart failure, unspecified; J44.89 Other specified chronic obstructive pulmonary disease; E87.8 Other disorders of electrolyte and fluid balance, not elsewhere classified; R62.7 Adult failure to thrive; I49.5 Sick sinus syndrome; E86.1 Hypovolemia; E87.6 Hypokalemia; Z79.01 Long term (current) use of anticoagulants; Z88.2 Allergy status to sulfonamides; Z79.51 Long term (current) use of inhaled steroids; Z79.52 Long term (current) use of systemic steroids; Z87.891 Personal history of nicotine dependence; Z95.0 Presence of cardiac pacemaker; Z68.20 Body mass index [BMI] 20.0-20.9, adult; Z85.820 Personal history of malignant melanoma of skin
CPT/HCPCS: 36415; 71045; 80048; 80053; 80162; 83690; 83735; 84100; 84443; 84484; 85014; 85018; 85025; 85049; 85520; 85610; 85730; 93005; 93010; 96360; 96361; 99285-25; A9270; J1160; J1644; J7070; J7120